=== PATIENT | female | born 1960 | race Caucasian/White ===

== ENCOUNTER 2016-06-08 15:09 | Inpatient (IN) | payer OTHER ==
[~2016-06-08] VITALS: Ht 162.6 cm; Wt 90.6 kg
[~2016-06-08 15:09] MED LIST: ACID CONTROL150 MG GT; ARTIFICIAL TEAR15 M6 RIGHT EYE; ASPIRIN81 M2 GT; Ambien PO; Aspirin Chewable PO; BISAC-EVAC10 MG PR; CACARB500L GT; CALCIUM 500 +1 EAC3 PO; CALCIUM 600 +1 EAC9 PO; CEFTRIAXONE2 G1 IV; CERTA VITE9 MG/15 ML GT; CHILDREN'S160 MG/23 GT; CHLORHEXIDINE PO; COLACE10 MG/ML G-TUBE; COLACE10 MG/ML GT; DUONEB 2.5-0.5 M3 ML AEROSOL; Dulcolax PR; DuoNeb IH; ERYTHROMYC1 APPLICAT RIGHT EYE; FAMOTIDINE20 MG PO; FLOVENT DISKUS1 DIS2 IH; Flonase BOTH NARES; GAS-X80 MG GT; GLUCAGON1 MG IM; HEPARIN SQ; HUMALOG100 UNIT/1 SC; ILOTYCIN1 GM RIGHT EYE; KLOR-CON20 MEQ GT; LANTUS 10100 UNITS/ SC; LASIX10 MG/ML PO; LASIX80 MG PO; LEXAPRO5 MG PO; MULTIVITAMIN1 EAC2 GT; MULTIVITAMIN1 EAC2 PO; Milk Of Magnesia,MOM PO; Miralax, Glycolax PO; Oscal 500 w/Vitamin PO; PAIN RELIEVER325 MG PO; POTASSIUM CHLO10 ME4 PO; PROMETHAZINE HC25 M1 PO; Pepcid PO; Phenergan PO; REFRESH LACRI-3.5 GM BOTH EYES; SENEXON8.8 MG/5 M GT; SIMVASTATIN20 MG GT; SYSTANE 0.300 DROP/1 BOTH EYES; Systane 0.3-0.4% Eye BOTH EYES; Theragran PO; [UNRECOGNIZED DRUG - OTHER] BOTH EYES; [UNRECOGNIZED DRUG - OTHER] GT
[2016-06-08] MEDS ORDERED: BACTRIM,SEPTRA S1 ML GT (16:36)
[2016-06-08] MEDS ORDERED: K-SOL20 MEQ/15 GT (16:37)
[2016-06-08] MEDS ORDERED: LANTUS 10100 UNITS/ SC (16:41)
[2016-06-08] MEDS ORDERED: VIGAMOX 0.60 DROP/3 RIGHT EYE (16:42)
[2016-06-08 16:49] LABS: CHLORIDE 105 mEq/L (99-109); POTASSIUM 3.7 mEq/L (3.7-5.4); SODIUM 138 mEq/L (136-147)
[2016-06-08 16:51] LABS: GLUCOSE 129 mg/dL (70-99)
[2016-06-08 16:52] LABS: ANION GAP 13 MEQ/L (2-14)
[2016-06-08 16:55] LABS: GFR ESTIMATE (CALCULATED) > 59 mL/min/; UREA NITROGEN (BUN) 16 mg/dL (9-23)
[2016-06-08 17:27] LABS: HEMATOCRIT 31.1 % (36.0-46.0); MCH 22.7 PG (29.0-34.0); MCHC 30.9 G/DL (30.0-36.0); MCV 73.5 FL (83-99); MEAN PLAT.VOLUME 10.4 uM^3 (9.5-12.4); PLATELET COUNT 216 K/uL (156-360); RBC DIS.WIDTH-CV 17.2 % (11.8-14.6); RBC DIS.WIDTH-SD 44.8 % (39-53); RED BLOOD COUNT 4.23 M/uL (3.80-5.20); WHITE BLOOD COUNT 8.6 K/uL (4.1-10.2)
[2016-06-08 17:28] LABS: EOSINOPHIL (%) 0.2 % (0-5); IMMATURE GRANULOCYTE (%) 0.2 % (0.0-0.7); IMMATURE GRANULOCYTE COUNT 0.2 K/uL; LYMPHOCYTE COUNT 0.6 K/uL (1.0-2.8); MONOCYTE (%) 2.2 % (3-12); MONOCYTE COUNT 0.2 K/uL (0-0.8); NEUTROPHIL (%) 90.1 % (45-76); NEUTROPHIL COUNT 7.7 K/uL (1.8-6.4)
[2016-06-08 17:37] LABS: INTER. NORMALIZED RATIO 1.2; PROTHROMBIN TIME 12.3 (9.2-11.2); PTT 31.4 (25-32)
[2016-06-08 20:46] LABS: ADD MIUA? YES; BILIRUBIN SMALL; BLOOD SMALL; COLOR DK YELLOW ((YELLOW)); GLUCOSE (STRIP) NEGATIVE; KETONES NEGATIVE; LEUKOCYTES TRACE; NITRITE NEGATIVE; PROTEIN (STRIP) >=300; SPECIFIC GRAVITY 1.027 (1.000-1.030); UROBILINOGEN 0.2 MG/DL (0.2-1.0)
[2016-06-08 21:12] LABS: RED BLOOD CELLS 0-5 /HPF (0-5)
[2016-06-08 21:13] LABS: EPITHELIAL CELLS RARE; MUCUS NONE SEEN; WHITE BLOOD CELLS 0-5 /HPF (0-5)
[2016-06-08 21:14] LABS: BACTERIA NONE SEEN; CASTS PRESENT /LPF; CRYSTALS NONE SEEN; FINE GRANULAR CASTS 0-5 /LPF; UCUL ADDED? NO
[2016-06-08 23:00] VITALS: BP 107/52
[2016-06-09 04:24] VITALS: BP 95/54
[2016-06-09 06:46] LABS: ANION GAP 9 MEQ/L (2-14); CHLORIDE 109 MEQ/L (99-109); GFR ESTIMATE (CALCULATED) > 59 mL/min/; SAMPLE HEMOLYSIS CHECK 0; SAMPLE ICTERIC CHECK 0; SAMPLE LIPEMIA CHECK 0; SODIUM 142 MEQ/L (136-147); UREA NITROGEN (BUN) 14 mg/dL (9-23)
[2016-06-09 06:48] LABS: GLUCOSE 91 mg/dL (70-99)
[2016-06-09 06:49] LABS: POTASSIUM 2.7 MEQ/L (3.7-5.4)
[2016-06-09 07:12] LABS: HEMATOCRIT 28.6 % (36.0-46.0); MCH 22.7 PG (29.0-34.0); MCHC 29.7 G/DL (30.0-36.0); MCV 76.3 FL (83-99); MEAN PLAT.VOLUME 10.6 uM^3 (9.5-12.4); PLATELET COUNT 170 K/uL (156-360); RBC DIS.WIDTH-CV 17.3 % (11.8-14.6); RBC DIS.WIDTH-SD 48.3 % (39-53); RED BLOOD COUNT 3.75 M/uL (3.80-5.20)
[2016-06-09 07:19] LABS: WHITE BLOOD COUNT 5.8 K/uL (4.1-10.2)
[2016-06-09 08:15] VITALS: BP 90/49
[2016-06-09 12:11] VITALS: BP 83/45
[2016-06-09 12:15] VITALS: BP 108/58
[2016-06-09 16:00] VITALS: BP 110/56
[2016-06-09 20:00] VITALS: BP 88/53
[2016-06-10] VITALS: BP 103/59
[2016-06-10 04:09] VITALS: BP 88/52
[2016-06-10 08:04] VITALS: BP 108/53
[2016-06-10 08:09] LABS: POINT-OF-CARE METER ID UU14174225
[2016-06-10 09:32] LABS: HEMATOCRIT 29.5 % (36.0-46.0); MCH 23.1 PG (29.0-34.0); MCHC 30.2 G/DL (30.0-36.0); MCV 76.4 FL (83-99); PLATELET COUNT 198 K/uL (156-360); RBC DIS.WIDTH-CV 17.8 % (11.8-14.6); RBC DIS.WIDTH-SD 49.7 % (39-53); RED BLOOD COUNT 3.86 M/uL (3.80-5.20); WHITE BLOOD COUNT 6.7 K/uL (4.1-10.2)
[2016-06-10 09:59] LABS: ANION GAP 9 MEQ/L (2-14); CHLORIDE 110 MEQ/L (99-109); GFR ESTIMATE (CALCULATED) > 59 mL/min/; GLUCOSE 88 mg/dL (70-99); SAMPLE HEMOLYSIS CHECK 0; SAMPLE ICTERIC CHECK 0; SAMPLE LIPEMIA CHECK 0; SODIUM 142 MEQ/L (136-147); UREA NITROGEN (BUN) 11 mg/dL (9-23)
[2016-06-10 10:35] LABS: POTASSIUM 3.3 MEQ/L (3.7-5.4)
[2016-06-10 16:02] VITALS: BP 104/52
[2016-06-10 19:28] VITALS: BP 110/56
[2016-06-10 23:33] VITALS: BP 103/87
[2016-06-11 03:33] VITALS: BP 109/64
[2016-06-11 07:53] VITALS: BP 108/61
[2016-06-11 09:12] LABS: POINT-OF-CARE METER ID UU14174225
[2016-06-11 11:58] LABS: POINT-OF-CARE METER ID UU14174225
[2016-06-11 12:21] VITALS: BP 106/60
[2016-06-11 15:37] VITALS: BP 103/60
[2016-06-11 16:08] LABS: ANION GAP 8 MEQ/L (2-14); CHLORIDE 110 MEQ/L (99-109); GFR ESTIMATE (CALCULATED) > 59 mL/min/; POTASSIUM 3.4 MEQ/L (3.7-5.4); SAMPLE HEMOLYSIS CHECK 0; SAMPLE ICTERIC CHECK 0; SAMPLE LIPEMIA CHECK 0; SODIUM 147 MEQ/L (136-147); UREA NITROGEN (BUN) 8 mg/dL (9-23)
[2016-06-11 16:13] LABS: GLUCOSE 115 mg/dL (70-99)
[2016-06-11 16:54] LABS: POINT-OF-CARE METER ID UU14174225
[2016-06-11 20:20] VITALS: BP 92/55
[2016-06-11 21:21] LABS: POINT-OF-CARE METER ID UU14174225
[2016-06-12] VITALS: BP 103/62
[2016-06-12 04:00] VITALS: BP 101/55
[2016-06-12 07:50] VITALS: BP 106/60
[2016-06-12 11:48] LABS: POINT-OF-CARE METER ID UU14174225
[2016-06-12 12:13] VITALS: BP 102/58
== END 2016-06-12 15:40 | DRG 862 ==
LOC: EME 15:09 → 5SOUTH 21:10 → EDOF 21:10 → 5SOUTH 22:44
PROVIDERS: Emergency Medicine; Hospitalist; Internal Medicine; Physician Assistant; Student in an Organized Health Care Education/Training Program
PROC: 0K9L30Z Drainage of Left Abdomen Muscle with Drainage Device, Percutaneous Approach (ICD-10-PCS; principal; 2016-06-09)
DX: T81.4XXA Infection following a procedure, initial encounter (principal); A41.9 Sepsis, unspecified organism; I69.254 Hemiplegia and hemiparesis following other nontraumatic intracranial hemorrhage affecting left non-dominant side; J96.10 Chronic respiratory failure, unspecified whether with hypoxia or hypercapnia; E87.6 Hypokalemia; E11.9 Type 2 diabetes mellitus without complications; J45.909 Unspecified asthma, uncomplicated; K21.9 Gastro-esophageal reflux disease without esophagitis; E66.9 Obesity, unspecified; Z68.34 Body mass index [BMI] 34.0-34.9, adult; Z93.0 Tracheostomy status; Z93.3 Colostomy status; I69.220 Aphasia following other nontraumatic intracranial hemorrhage; Z88.1 Allergy status to other antibiotic agents
CPT/HCPCS: 71010; 74176; 75989; 76937; 80048; 80202; 81003; 82948; 83605; 85025; 85027; 85610; 85730; 87040; 87070; 87075; 87205; 94799; 99281; 99285; C1769; J1650; J1815; J2543; J3370; J3480; J7030; J7050; J7120

== ENCOUNTER → 2016-07-05 | Outpatient (CLI) | payer OTHER ==
[~2016-07-05] MED LIST changes: +BACTRIM,SEPTRA S1 ML GT; +K-SOL20 MEQ/15 GT; +VIGAMOX 0.60 DROP/3 RIGHT EYE
== END ==
LOC: RAD 09:40 → EDSTATUS 10:00
DX: K65.1 Peritoneal abscess (principal)
CPT/HCPCS: 74176